=== PATIENT | male | born 1960 | race Caucasian/White ===

== ENCOUNTER 2016-10-31 09:12 | Emergency (ER) | payer OTHER ==
[~2016-10-31] VITALS: Ht 182.9 cm; Wt 112.5 kg
[~2016-10-31 09:12] MED LIST: ALBUTEROL2.5 MG/0.5; ALPRAZOLAM0.5 MG PO; ASPIR 8181 M1 PO; CRESTOR5 MG PO; DEPAKOTE500 MG PO; FISH OIL 1,0001 EAC8 PO; FLEXERIL5 MG PO; GLIPIZIDE10 M1 PO; GLUCOPHAGE500 MG PO; IOPHEN-C NR LI473 ML PO; LEVAQUIN750 MG PO; LIPOFEN150 MG PO; MAGNESIUM500 MG PO; Medrol Dosepak PO; PriLOSEC PO; ULTRAM50 MG PO; VENTOLIN HFA18 GM IH; WELLBUTRIN SR200 MG PO; WELLBUTRIN100 MG PO; Wellbutrin SR PO; ZITHROMAX250 MG PO
[2016-10-31 13:04] LABS: HEMATOCRIT 46.2 % (38.0-50.0); MCH 30.9 PG (29.0-34.0); MCHC 32.7 G/DL (30.0-36.0); MCV 94.7 FL (86-99); MEAN PLAT.VOLUME 9.3 uM^3 (9.0-12.4); PLATELET COUNT 176 K/uL (156-360); RBC DIS.WIDTH-CV 13.1 % (11.8-14.6); RBC DIS.WIDTH-SD 44.9 % (39-53); RED BLOOD COUNT 4.88 M/uL (4.00-5.50); WHITE BLOOD COUNT 7.3 K/uL (4.1-10.2)
[2016-10-31 13:14] LABS: CHLORIDE 97 mEq/L (99-109); POTASSIUM 4.1 mEq/L (3.7-5.4); SODIUM 138 mEq/L (136-147)
[2016-10-31 13:16] LABS: GLUCOSE 157 mg/dL (70-99)
[2016-10-31 13:18] LABS: ANION GAP 11 MEQ/L (2-14); TOTAL BILIRUBIN 0.4 mg/dL (0.0-1.0)
[2016-10-31 13:20] LABS: ALKALINE PHOSPHATASE 54 IU/L (3-129); GFR ESTIMATE (CALCULATED) > 59 mL/min/
[2016-10-31 13:21] LABS: UREA NITROGEN (BUN) 16 mg/dL (9-23)
[2016-10-31] MEDS ORDERED: FUTURO RESTORI1 EACH MC (13:43)
[2016-10-31 14:10] VITALS: BP 144/86
== END 2016-10-31 14:10 | disposition home or self-care (01) ==
LOC: EME 09:12
PROVIDERS: Nurse Practitioner Family
DX: R60.0 Localized edema (principal); F32.9 Major depressive disorder, single episode, unspecified; E78.5 Hyperlipidemia, unspecified; E11.9 Type 2 diabetes mellitus without complications; J45.909 Unspecified asthma, uncomplicated; Z87.442 Personal history of urinary calculi; Z88.6 Allergy status to analgesic agent; Z88.1 Allergy status to other antibiotic agents; Z79.84 Long term (current) use of oral hypoglycemic drugs
CPT/HCPCS: 71020; 80053; 83880; 85027; 93970; 99281; 99283

== ENCOUNTER 2016-12-19 19:40 | Emergency (ER) | payer OTHER ==
[~2016-12-19] VITALS: Ht 182.9 cm; Wt 111.1 kg
[~2016-12-19 19:40] MED LIST changes: +FUTURO RESTORI1 EACH MC
[2016-12-19] MEDS ORDERED: CLEOCIN300 MG PO (20:42)
[2016-12-19 21:02] VITALS: BP 149/78
== END 2016-12-19 21:02 | disposition home or self-care (01) ==
LOC: EME 19:40 → EXP 19:40
DX: L02.415 Cutaneous abscess of right lower limb (principal); E11.65 Type 2 diabetes mellitus with hyperglycemia; Z79.84 Long term (current) use of oral hypoglycemic drugs; E78.5 Hyperlipidemia, unspecified; J45.909 Unspecified asthma, uncomplicated; F32.9 Major depressive disorder, single episode, unspecified; M19.90 Unspecified osteoarthritis, unspecified site; Z88.0 Allergy status to penicillin; Z98.890 Other specified postprocedural states
CPT/HCPCS: 99281; 99284

== ENCOUNTER 2017-10-23 13:04 | Day surgery (SDC) | payer OTHER ==
[~2017-10-23] VITALS: Ht 182.9 cm; Wt 114.4 kg
[~2017-10-23 13:04] MED LIST changes: -ALBUTEROL2.5 MG/0.5; +ALBUTEROL2.5 MG/0.5 IH; +CLEOCIN300 MG PO
[2017-10-23 14:37] LABS: APPEARANCE CLEAR ((CLEAR)); BILIRUBIN NEGATIVE; BLOOD SMALL; COLOR STRAW ((YELLOW)); GLUCOSE (STRIP) >=500; KETONES 5; LEUKOCYTES NEGATIVE; NITRITE NEGATIVE; PROTEIN (STRIP) NEGATIVE; SPECIFIC GRAVITY 1.025 (1.000-1.030); UROBILINOGEN 0.2 MG/DL (0.2-1.0)
[2017-10-23 14:39] LABS: BASOPHIL (%) 0.5 % (0-1); EOSINOPHIL (%) 1.4 % (0-5); EOSINOPHIL COUNT 0.1 K/uL (0-0.3); HEMATOCRIT 40.4 % (38.0-50.0); HEMOGLOBIN 13.5 G/DL (12.5-16.6); IMMATURE GRANULOCYTE (%) 0.5 % (0.0-0.7); LYMPHOCYTE (%) 47.8 % (15-42); LYMPHOCYTE COUNT 3.5 K/uL (1.0-2.8); MCH 31.7 PG (29.0-34.0); MCHC 33.4 G/DL (30.0-36.0); MCV 94.8 FL (86-99); MONOCYTE (%) 11.7 % (3-12); MONOCYTE COUNT 0.9 K/uL (0-0.8); NEUTROPHIL (%) 38.1 % (45-76); NEUTROPHIL COUNT 2.8 K/uL (1.8-6.4); PLATELET COUNT 153 K/uL (156-360); RBC DIS.WIDTH-CV 13.2 % (11.8-14.6); RED BLOOD COUNT 4.26 M/uL (4.00-5.50); WHITE BLOOD COUNT 7.4 K/uL (4.1-10.2)
[2017-10-23 14:39] LABS: BACTERIA NONE SEEN /HPF; EPITHELIAL CELLS NONE SEEN /HPF; MUCUS NONE SEEN /LPF; RED BLOOD CELLS 0-5 /HPF (0-5); UCUL ADDED? NO; WHITE BLOOD CELLS 0-5 /HPF (0-5)
[2017-10-23 14:47] LABS: CHLORIDE 100 mEq/L (99-109); POTASSIUM 4.5 mEq/L (3.7-5.4); SODIUM 139 mEq/L (136-147)
[2017-10-23 14:49] LABS: GLUCOSE 297 mg/dL (70-99)
[2017-10-23 14:53] LABS: GFR ESTIMATE (CALCULATED) > 59 mL/min/ (58.99-99999)
[2017-10-23 14:54] LABS: UREA NITROGEN (BUN) 18 mg/dL (9-23)
[2017-10-23] MEDS ORDERED: DEPAKOTE ER500 MG PO ×2 (17:51→17:52)
[2017-10-23] MEDS ORDERED: OMEPRAZOLE40 M1 PO (17:53)
[2017-10-23] MEDS ORDERED: FLOMAX0.4 MG PO (17:54)
[2017-10-23] MEDS ORDERED: PRISTIQ50 MG PO (17:54)
[2017-10-23] MEDS ORDERED: HUMULIN R500 UNITS/ SC ×2 (17:55)
[2017-10-23] MEDS ORDERED: CRESTOR40 MG PO (17:56)
[2017-10-23] MEDS ORDERED: VITAMIN D2000 UNIT PO (17:56)
[2017-10-23] MEDS ORDERED: HYDROCHLOROTHIA25 MG PO (17:56)
[2017-10-23] MEDS ORDERED: SYNTHROID100 MCG PO (17:56)
[2017-10-24] VITALS (8 sets, daily range): BP systolic 115–154; BP diastolic 62–85
[2017-10-24 06:56] LABS: HEMATOCRIT 41.8 % (38.0-50.0); HEMOGLOBIN 13.3 G/DL (12.5-16.6); MCH 30.2 PG (29.0-34.0); MCHC 31.8 G/DL (30.0-36.0); MCV 94.8 FL (86-99); PLATELET COUNT 145 K/uL (156-360); RBC DIS.WIDTH-CV 13.2 % (11.8-14.6); RBC DIS.WIDTH-SD 45.8 % (39-53); RED BLOOD COUNT 4.41 M/uL (4.00-5.50); WHITE BLOOD COUNT 6.8 K/uL (4.1-10.2)
[2017-10-25 00:24] VITALS: BP 126/60
[2017-10-25 04:24] VITALS: BP 119/66
[2017-10-25 05:53] LABS: BASOPHIL (%) 0.3 % (0-1); EOSINOPHIL (%) 0.5 % (0-5); EOSINOPHIL COUNT 0.1 K/uL (0-0.3); HEMATOCRIT 37.3 % (38.0-50.0); HEMOGLOBIN 12.6 G/DL (12.5-16.6); IMMATURE GRANULOCYTE (%) 0.3 % (0.0-0.7); LYMPHOCYTE COUNT 4.2 K/uL (1.0-2.8); MCH 31.8 PG (29.0-34.0); MCHC 33.8 G/DL (30.0-36.0); MCV 94.2 FL (86-99); MONOCYTE (%) 13.2 % (3-12); MONOCYTE COUNT 1.3 K/uL (0-0.8); NEUTROPHIL (%) 44.7 % (45-76); NEUTROPHIL COUNT 4.5 K/uL (1.8-6.4); PLATELET COUNT 146 K/uL (156-360); RBC DIS.WIDTH-CV 13.4 % (11.8-14.6); RED BLOOD COUNT 3.96 M/uL (4.00-5.50); WHITE BLOOD COUNT 10.1 K/uL (4.1-10.2)
[2017-10-25 06:16] LABS: CREATININE 0.8 MG/DL (0.6-1.3); GFR ESTIMATE (CALCULATED) > 59 mL/min/ (58.99-99999); UREA NITROGEN (BUN) 23 mg/dL (9-23)
[2017-10-25 07:31] VITALS: BP 131/65
[2017-10-25] MEDS ORDERED: COLACE100 MG PO (11:13)
[2017-10-25] MEDS ORDERED: PERCOCET 5/31 TABLET PO (11:13)
== END 2017-10-25 13:56 | disposition home or self-care (01) ==
LOC: EME 13:04 → SDC 22:45 → 3EAST 23:31 → 2SOUTH 23:31 → ENRESERV 23:50 → 3EAST 10-24 00:35
PROVIDERS: Emergency Medicine; Physician Assistant; Surgery
PROC: 0J9M0ZZ Drainage of Left Upper Leg Subcutaneous Tissue and Fascia, Open Approach (ICD-10-PCS; principal; 2017-10-23)
DX: S70.02XA Contusion of left hip, initial encounter (principal); R26.2 Difficulty in walking, not elsewhere classified; W01.0XXA Fall on same level from slipping, tripping and stumbling without subsequent striking against object, initial encounter; Y93.01 Activity, walking, marching and hiking; Y92.833 Campsite as the place of occurrence of the external cause; Y99.0 Civilian activity done for income or pay; E78.5 Hyperlipidemia, unspecified; J45.909 Unspecified asthma, uncomplicated; G47.33 Obstructive sleep apnea (adult) (pediatric); E11.9 Type 2 diabetes mellitus without complications; Z88.0 Allergy status to penicillin; Z88.5 Allergy status to narcotic agent; Z79.82 Long term (current) use of aspirin; Z79.84 Long term (current) use of oral hypoglycemic drugs
CPT/HCPCS: 73701; 80048; 81003; 82565; 82948; 84520; 85025; 85027; 86850; 86900; 86901; 97530 GP; 99281; 99285; G0378; G8978 GP CJ; G8979 GP CH; G8980 GP CI; G8987 GO CM; G8988 GO CH; G8989 GO CM; J0690; J1100; J1815; J2405; J3010; J7120